=== PATIENT | female | born 1965 | race Two or more races ===

== ENCOUNTER 2024-03-25 18:28 | Emergency (ER) | payer OTHER ==
[~2024-03-25] VITALS: Ht 165.1 cm; Wt 64.0 kg
[2024-03-25 18:47] VITALS: O2SAT 100
[2024-03-25] MEDS: KETOROLAC 30MG/ML VIAL IM ONE (19:47)
[2024-03-25] MEDS: HYDROCODONE/ACETAMINOPHEN 5/325MG TABLET PO ONE (19:48)
[2024-03-25 19:49] VITALS: BP 144/88; PULSE 85; RESP 20; TEMP 37.05852; O2SAT 98
[2024-03-25] MEDS ORDERED: ACET-2708 MT (20:26)
[2024-03-25] MEDS ORDERED: NAPR375T5 MT (20:26)
== END 2024-03-25 20:30 | disposition home or self-care (01) ==
LOC: ER 18:28
DX: S92.001A Unspecified fracture of right calcaneus, initial encounter for closed fracture (principal); W18.30XA Fall on same level, unspecified, initial encounter; Y93.89 Activity, other specified; Y92.89 Other specified places as the place of occurrence of the external cause; Y99.8 Other external cause status
CPT/HCPCS: 73590; 73610; 73630; 29515; 96372; 99284; J1885; Z7610